=== PATIENT | female | born 2000 | race Caucasian/White ===

== ENCOUNTER 2020-04-15 19:44 | Emergency (ER) | payer MEDICAID ==
[~2020-04-15] VITALS: Ht 172.7 cm; Wt 79.4 kg
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
[2020-04-15 19:59] VITALS: BP 138/95
--- NOTE | 2020-04-15 19:59 | NUR ---
PT UNABLE TO GIVE URINE AT THIS TIME.
[2020-04-15] MEDS ORDERED: KETOROLAC 60 MG/2 ML VIAL IM ONE (20:10)
--- NOTE | 2020-04-15 20:10 | NUR ---
PATIENT AMBUALTED TO RESTROOM TO PROVIDE URINE SAMPLE.
[2020-04-15] MEDS ORDERED: IBUP-2213 PO (20:39)
[2020-04-15] MEDS ORDERED: CIPR500T4 PO (20:39)
[2020-04-15] MEDS ORDERED: ACET-8386 PO (20:39)
--- NOTE | 2020-04-15 20:53 | NUR ---
Patient discharged with v/s stable. Written and verbal after care instructions given and explained. Patient alert, oriented and verbalized understanding of instructions. Ambulatory with steady gait. All questions addressed prior to discharge. ID band removed. Patient advised to follow up with PMD. Rx of CIPRO, NORCO, IBUPROFEN given. Patient educated on indication of medication including possible reaction and side effects. Opportunity to ask questions provided and answered.
[2020-04-15 20:54] VITALS: BP 138/95
== END 2020-04-15 20:54 | disposition home or self-care (01) ==
LOC: MED 19:44
DX: M25.511 Pain in right shoulder (principal); M54.2 Cervicalgia; J45.909 Unspecified asthma, uncomplicated; Z88.1 Allergy status to other antibiotic agents; V98.8XXA Other specified transport accidents, initial encounter; Y93.89 Activity, other specified; Y92.89 Other specified places as the place of occurrence of the external cause; Y99.8 Other external cause status
CPT/HCPCS: 81002; 81025; 96372; 99283; J1885

== ENCOUNTER 2022-05-03 13:08 | Emergency (ER) | payer SELFPAY ==
[~2022-05-03] VITALS: Ht 172.7 cm; Wt 78.5 kg
[~2022-05-03 13:08] MED LIST: ACET-8905 PO; CIPR500T4 PO; IBUP-2213 PO
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
[2022-05-03 14:00] LABS: APPEARANCE,URINE CLEAR (CLEAR); BILIRUBIN,URINE NEGATIVE (NEGATIVE); BLOOD, URINE NEGATIVE (NEGATIVE); COLOR,URINE YELLOW (YELLOW); LEUKOCYTE ESTERASE ,URINE NEGATIVE (NEGATIVE); NITRITE, URINE NEGATIVE (NEGATIVE); PH,URINE 7.5 (5.0-9.0); UGLUCOSE NEGATIVE (NEGATIVE)
[2022-05-03 14:07] LABS: BASOPHILS # (AUTO) 0.1 K/uL (0.00-0.22); BASOPHILS % (AUTO) 0.8 % (0.0-2.0); EOSINOPHILS # (AUTO) 0.1 K/uL (0-0.4); EOSINOPHILS % (AUTO) 0.7 % (0.0-4.0); HEMATOCRIT 39.5 % (36-48); HEMOGLOBIN 13.5 g/dL (12.0-16.0); LYMPHOCYTES % (AUTO) 11.4 % (20.5-51.1); MEAN CORPUSCULAR HEMOGLOBIN 32 pg (27-31); MEAN CORPUSCULAR HGB CONC 34 g/dL (33-37); MEAN CORPUSCULAR VOLUME 93.5 fL (80-94); MONOCYTES # (AUTO) 0.5 K/uL (0.8-1.0); MONOCYTES % (AUTO) 6.4 % (1.7-9.3); NEUTROPHILS # (AUTO) 6.8 K/uL (1.8-7.7); NEUTROPHILS % (AUTO) 80.7 % (42.2-75.2); PLATELET COUNT (AUTO) 179 K/uL (140-450); RED BLOOD CELL COUNT(AUTO) 4.23 MIL/uL (4.20-5.40); RED CELL DISTRIBUTION WIDTH 12.3 % (11.6-13.7); WHITE BLOOD COUNT (AUTO) 8.4 K/uL (4.8-10.8)
[2022-05-03] MEDS ORDERED: KETOROLAC 60 MG/2 ML VIAL IM ONE (14:20)
[2022-05-03 14:45] LABS: ANION GAP 13.7 (8-16); CARBON DIOXIDE 24.1 mmol/L (21-32); CREATININE 0.9 mg/dL (0.6-1.3); POTASSIUM 3.8 mmol/L (3.5-5.1)
[2022-05-03] MEDS ORDERED: ONDANSETRON 4 MG ODT ONE (15:46)
[2022-05-03] MEDS: ONDANSETRON 4 MG ODT PO ONE ×2 (15:47→16:15)
--- NOTE | 2022-05-03 15:54 | NUR ---
PATIENT TAKEN TO CT VIA W/C
[2022-05-03 16:07] VITALS: BP 100/54
[2022-05-03] MEDS ORDERED: ACET-8905 PO (16:36)
[2022-05-03] MEDS ORDERED: IBUP-2213 PO (16:36)
--- NOTE | 2022-05-03 16:42 | NUR ---
Patient discharged with v/s stable. Written and verbal after care instructions given and explained. Patient alert, oriented and verbalized understanding of instructions. Ambulatory with steady gait. All questions addressed prior to discharge. ID band removed. Patient advised to follow up with PMD. Rx of IBUPROFEN AND NORCO given. Patient educated on indication of medication including possible reaction and side effects. Opportunity to ask questions provided and answered.
== END 2022-05-03 16:42 | disposition home or self-care (01) ==
LOC: MED 13:08
DX: R10.30 Lower abdominal pain, unspecified (principal); Z88.5 Allergy status to narcotic agent; Z79.899 Other long term (current) drug therapy
CPT/HCPCS: 36415; 74176; 80048; 81003; 81025; 83690; 85025; 96372; 99285; J1885; Q0162

== ENCOUNTER 2022-05-21 15:20 | Emergency (ER) | payer OTHER ==
[~2022-05-21] VITALS: Ht 172.7 cm; Wt 78.5 kg
[2022-05-21 15:42] VITALS: BP 105/57
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
[2022-05-21] MEDS ORDERED: CYCL-711 PO (16:49)
[2022-05-21] MEDS ORDERED: IBUP-2213 PO (16:49)
[2022-05-21] MEDS ORDERED: LID5T TP (16:49)
== END 2022-05-21 17:05 | disposition home or self-care (01) ==
LOC: MED 15:20
DX: S16.1XXA Strain of muscle, fascia and tendon at neck level, initial encounter (principal); M79.18 Myalgia, other site; J45.909 Unspecified asthma, uncomplicated; Z79.899 Other long term (current) drug therapy; Z79.1 Long term (current) use of non-steroidal anti-inflammatories (NSAID); Z79.891 Long term (current) use of opiate analgesic; Z79.2 Long term (current) use of antibiotics; Z88.1 Allergy status to other antibiotic agents; V89.2XXA Person injured in unspecified motor-vehicle accident, traffic, initial encounter; Y93.89 Activity, other specified; Y92.410 Unspecified street and highway as the place of occurrence of the external cause; Y99.8 Other external cause status
CPT/HCPCS: 99281